=== PATIENT | male | born 1965 | race Caucasian/White ===

== ENCOUNTER 2023-09-13 10:41 | Emergency (ER) | payer OTHER ==
[~2023-09-13] VITALS: Ht 165.1 cm; Wt 88.5 kg
[2023-09-13 10:45] VITALS: BP_SYST 154; PULSE 79; RESP 22; TEMP 97.7; O2SAT 97
[2023-09-13 12:30] LABS: BASOPHILS % (AUTO) 0.2 % (0.0-2.0); HEMATOCRIT 44.2 % (36-54); HEMOGLOBIN 15.3 g/dL (14.0-18.0); LYMPHOCYTES # (AUTO) 1.1 K/uL (1.0-5.5); LYMPHOCYTES % (AUTO) 7.7 % (20.5-51.5); MEAN CORPUSCULAR HEMOGLOBIN 31 pg (27-31); MEAN CORPUSCULAR HGB CONC 35 % (32-36); MEAN CORPUSCULAR VOLUME 90 fL (79.0-98.0); MONOCYTES # (AUTO) 0.9 K/uL (0.0-1.0); MONOCYTES % (AUTO) 6.1 % (1.7-9.3); NEUTROPHILS # (AUTO) 12.4 K/uL (1.8-7.7); PLATELET COUNT (AUTO) 273 K/uL (130-430); RED BLOOD CELL COUNT(AUTO) 4.92 MIL/uL (4.2-6.2); RED CELL DISTRIBUTION WIDTH 13.2 % (9.0-15.0); WHITE BLOOD COUNT (AUTO) 14.4 K/uL (4.8-10.8)
[2023-09-13 12:38] LABS: CALCIUM 9.7 mg/dL (8.4-11.0); CREATININE 0.87 mg/dL (0.55-1.30); POTASSIUM 4.1 mmol/L (3.5-5.1)
[2023-09-13 12:40] LABS: BILIRUBIN,URINE NEGATIVE (NEGATIVE); BLOOD, URINE 2+ (NEGATIVE); CLARITY/URINE CLEAR (CLEAR); COLOR,URINE YELLOW (YELLOW); GLUCOSE,URINE NEGATIVE (NEGATIVE); KETONES,URINE NEGATIVE (NEGATIVE); LEUKOCYTE ESTERASE ,URINE NEGATIVE (NEGATIVE); NITRITE, URINE NEGATIVE (NEGATIVE); PROTEIN URINE 2+ (NEGATIVE); UROBILINOGEN,URINE 0.2 (0.2-1.0)
[2023-09-13 12:43] LABS: ALBUMIN 3.8 g/dL (3.4-4.8); TOTAL BILIRUBIN 0.5 mg/dL (0.0-1.0); TOTAL PROTEIN, SERUM 7.4 g/dL (6.4-8.3)
[2023-09-13 12:55] LABS: BACTERIA,URINE None Seen /HPF (None Seen); FINE GRANULAR CASTS,URINE 0-1 /LPF (None Seen); WBC,URINE 0-3 /HPF (0-3)
[2023-09-13 15:42] VITALS: BP_SYST 133; PULSE 72; RESP 18; TEMP 97.9; O2SAT 94
== END 2023-09-13 15:40 | disposition home or self-care (01) ==
LOC: SED 10:41
DX: R33.9 Retention of urine, unspecified (principal); E11.9 Type 2 diabetes mellitus without complications
CPT/HCPCS: 36415; 76376; 80053; 81000; 81001; 81015; 85025; 99284

== ENCOUNTER 2023-09-14 09:50 | Emergency (ER) | payer OTHER ==
[~2023-09-14] VITALS: Ht 165.1 cm; Wt 74.8 kg
[2023-09-14 10:00] VITALS: BP_SYST 184; PULSE 79; RESP 20; TEMP 98.2; O2SAT 99
[2023-09-14 11:04] VITALS: BP_SYST 184; PULSE 79; RESP 20; TEMP 98.2; O2SAT 99
== END 2023-09-14 11:05 | disposition home or self-care (01) ==
LOC: SED 09:50
DX: N40.1 Benign prostatic hyperplasia with lower urinary tract symptoms (principal); R33.9 Retention of urine, unspecified; E11.9 Type 2 diabetes mellitus without complications
CPT/HCPCS: 82948; 99284

== ENCOUNTER 2023-09-20 01:50 | Emergency (ER) | payer OTHER ==
[~2023-09-20] VITALS: Ht 165.1 cm; Wt 88.9 kg
[2023-09-20 01:59] VITALS: BP_SYST 198; PULSE 76; RESP 19; TEMP 97.9; O2SAT 97
[2023-09-20] MEDS ORDERED: cloNIDine HCL 0.2 MG TABLET PO ONE (02:30)
[2023-09-20] MEDS ORDERED: cloNIDine HCL 0.1 MG TABLET ONE (03:14)
[2023-09-20] MEDS ORDERED: cloNIDine HCL 0.1 MG TABLET PO ONE (03:15)
[2023-09-20 03:32] LABS: BILIRUBIN,URINE NEGATIVE (NEGATIVE); BLOOD, URINE 2+ (NEGATIVE); COLOR,URINE YELLOW (YELLOW); GLUCOSE,URINE NEGATIVE (NEGATIVE); KETONES,URINE NEGATIVE (NEGATIVE); LEUKOCYTE ESTERASE ,URINE 1+ (NEGATIVE); NITRITE, URINE POSITIVE (NEGATIVE); PROTEIN URINE 2+ (NEGATIVE); UROBILINOGEN,URINE 0.2 (0.2-1.0)
[2023-09-20 03:32] LABS: BASOPHILS # (AUTO) 0.1 K/uL (0.0-0.2); BASOPHILS % (AUTO) 0.7 % (0.0-2.0); EOSINOPHILS # (AUTO) 0.3 K/uL (0.0-0.4); EOSINOPHILS % (AUTO) 2.8 % (0.0-4.0); HEMATOCRIT 41.6 % (36-54); HEMOGLOBIN 14.4 g/dL (14.0-18.0); LYMPHOCYTES # (AUTO) 3.1 K/uL (1.0-5.5); LYMPHOCYTES % (AUTO) 33.2 % (20.5-51.5); MEAN CORPUSCULAR HEMOGLOBIN 31 pg (27-31); MEAN CORPUSCULAR HGB CONC 35 % (32-36); MEAN CORPUSCULAR VOLUME 89 fL (79.0-98.0); MONOCYTES # (AUTO) 0.8 K/uL (0.0-1.0); MONOCYTES % (AUTO) 8.7 % (1.7-9.3); NEUTROPHILS # (AUTO) 5.2 K/uL (1.8-7.7); NEUTROPHILS % (AUTO) 54.6 % (40.0-70.0); PLATELET COUNT (AUTO) 301 K/uL (130-430); RED BLOOD CELL COUNT(AUTO) 4.65 MIL/uL (4.2-6.2); RED CELL DISTRIBUTION WIDTH 12.8 % (9.0-15.0); WHITE BLOOD COUNT (AUTO) 9.4 K/uL (4.8-10.8)
[2023-09-20 03:38] LABS: CLARITY/URINE CLOUDY (CLEAR)
[2023-09-20 03:39] LABS: BACTERIA,URINE MANY /HPF (None Seen); RBC,URINE 20-50 /HPF (0-3); WBC,URINE 80-100 /HPF (0-3)
[2023-09-20 03:40] LABS: URIC ACID CRYSTALS,URINE 0-10 /HPF (None Seen)
[2023-09-20 03:42] LABS: CALCIUM 8.8 mg/dL (8.4-11.0); CREATININE 0.78 mg/dL (0.55-1.30); POTASSIUM 3.7 mmol/L (3.5-5.1)
[2023-09-20] MEDS: cloNIDine HCL 0.1 MG TABLET PO ONE (03:43)
[2023-09-20] MEDS ORDERED: CEPH250C PO (03:58)
[2023-09-20] MEDS ORDERED: TAMS-11 PO (03:59)
[2023-09-20 04:15] VITALS: BP_SYST 140; PULSE 63; RESP 18; TEMP 98.1; O2SAT 95
== END 2023-09-20 04:15 | disposition home or self-care (01) ==
LOC: SED 01:50
DX: T83.031A Leakage of indwelling urethral catheter, initial encounter (principal); E11.9 Type 2 diabetes mellitus without complications; R33.9 Retention of urine, unspecified; I16.0 Hypertensive urgency; Y70.2 Prosthetic and other implants, materials and accessory anesthesiology devices associated with adverse incidents
CPT/HCPCS: 36415; 80048; 81000; 81001; 81015; 85025; 87086; 99283